=== PATIENT | male | born 1960 | race Caucasian/White ===

== ENCOUNTER 2016-12-31 19:15 | Emergency (ER) | payer OTHER ==
--- NOTE | 2016-12-31 19:55 | RADIOLOGY REPORT ---
HISTORY: Trauma. COMPARISON: None. TECHNIQUE: Three views right foot. FINDINGS: There is no evidence of acute fracture or dislocation. The joint spaces appear preserved. There is normal bone mineralization. The soft tissues appear unremarkable. IMPRESSION: No fracture or dislocation. Final Electronic Signature: This report was electronically signed by Adonis Arechiga MD on 12/31/2016 7: 52 PM. nicolas /
--- NOTE | 2016-12-31 20:12 | ER NURSING DOCUMENTATION ---
Nurse's Notes [facility] Name:Estevan Adame Age:56 yrs Sex:Male :1960 Arrival Date:12/31/2016 Time:19:15 Bed6 Private MD: Diagnosis:Foot Contusion Presentation: 12/31 19:24 Presenting complaint: Patient states: I tripped on some snow and the outside of my foot mk2 really hurts. Pt points to distal lateral portion of R foot for pain. Transition of care: Home. Care prior to arrival: Medication(s) given: Ibuprofen. 19:24 Method Of Arrival: Walk In 2 19:24 Acuity: REZA 4 2 Triage Assessment: 19:25 General: Appears in no apparent distress, Behavior is cooperative, pleasant. Pain: [facility] Complains of pain in lateral side of right foot Pain currently is 6 out of 10 on a pain scale. Quality of pain is described as sharp. Musculoskeletal: Circulation, motion, and sensation intact Capillary refill < 3 seconds Pt states some residual numbness in the R foot after back surgery. Injury Description: tripped. Historical: - Allergies: No known drug Allergies; - Home Meds: 1. None - PMHx: None; - PSHx: L5 surgery; - Tetanus: < 10 years. - Ebola Screening: : Patient negative for fever greater than or equal to 101.5 degrees Fahrenheit, and additional compatible Ebola Virus Disease symptoms. Patient denies exposure to infectious person. Patient denies travel to an Ebola-affected area in the 21 days before illness onset. No symptoms or risks identified at this time. . - Immunization history: Flu Vaccine < 1 year. - Social history: Smoking status: Patient states was never smoker of tobacco. Patient uses alcohol occasionally. Patient/guardian denies using street drugs. Screenin:27 Infectious Disease Risk None. Abuse screen: Denies threats or abuse. Nutritional 2 screening: No deficits noted. Assessment: 19:27 See Triage Assessment done by same RN. [facility] Vital Signs: 19:20 BP 128 / 88; Pulse 94; Resp 16; Temp 98.4; Pulse Ox 95% ; Weight 81.65 kg; Height 6 ft. jt (182.88 cm); Pain 7/10; 19:20 Body Mass Index 24.41 (81.65 kg, 182.88 cm) jt ED Course: 19:16 Patient arrived in ED. em3 19:20 Spencer Patterson MD is Attending Physician. nv 19:24 Nikkie Gonsalez, RN is Primary Nurse. mk2 19:25 Triage completed. mk2 19:26 Arm band placed on Bed in low position Call Light in Reach Gowned HOB Elevated Side mk2 rails up x1. 19:27 Valuables Remains with patient Patient has correct armband on for positive mk2 identification. Bed in low position. Call light in reach. Side rails up X 1. Ice pack to injury. 19:59 Port Xray Completed. pm1 Administered Medications: No medications were administered Outcome: 20:03 Discharge ordered by . nv 20:10 Discharged to home via wheelchair. mk2 20:10 Condition: good 20:10 Discharge instructions given to patient, Instructed on discharge instructions, follow up and referral plans. medication usage. 20:10 Patient left the ED. mk2 01/01 17:06 Discharge F/U Call: Unable to reach: no answer lb Signatures: Spencer Patterson MD MD nv Nikkie Gonsalez, RN RN mk2 Saud Hood pm1 Scottie Hopper em3 Liv Cotton Lynda lb
--- NOTE | 2016-12-31 20:14 | ER PHYSICIAN DOCUMENTATION ---
Physician Documentation [facility] Name:Estevan Adame Age:56 yrs Sex:Male :1960 Arrival Date:12/31/2016 Time:19:15 Bed6 Private MD: Spencer Dalton Disposition: 12/31/16 20:03 Discharged to Home/Self Care. Impression: Foot Contusion. - Condition is Good. - Discharge Instructions: CONTUSION, Foot. - Medical Reconciliation form form. - Follow up: Private Physician; When: 10 - 14 days; Reason: Recheck today's complaints. - Problem is new. - Symptoms are unchanged. HPI: 12/31 19:58 This 56 yrs old Male presents to ER via Walk In with complaints of Foot sc Injury - Right. 19:58 The patient presents with an injury. The complaints affect the right foot. Context: The sc problem was sustained outdoors, resulted from the patient stepping on slipped in snow. Onset: The symptom(s)/episode began/occurred today. Associated signs and symptoms: The patient has no apparent associated signs or symptoms. Historical: - Allergies: No known drug Allergies; - Home Meds: 1. None - PMHx: None; - PSHx: L5 surgery; - Tetanus: < 10 years. - Ebola Screening: : Patient negative for fever greater than or equal to 101.5 degrees Fahrenheit, and additional compatible Ebola Virus Disease symptoms. Patient denies exposure to infectious person. Patient denies travel to an Ebola-affected area in the 21 days before illness onset. No symptoms or risks identified at this time. . - Immunization history: Flu Vaccine < 1 year. - Social history: Smoking status: Patient states was never smoker of tobacco. Patient uses alcohol occasionally. Patient/guardian denies using street drugs. ROS: 19:59 MS/extremity: Positive for injury or acute deformity. sc 19:59 Constitutional: Negative for fever, chills, and weight loss. sc Neck: Negative for injury, pain, and swelling. Back: Negative for injury and pain. Skin: Negative for injury, rash, and discoloration. 19:59 Neuro: Negative for headache, weakness, numbness, tingling, and seizure. Exam: Constitutional: This is a well developed, well nourished patient who is awake, alert, and in no acute distress. Head/Face: Normocephalic, atraumatic. 19:59 Eyes: Pupils equal round and reactive to light, extra-ocular motions intact. Lids and sc lashes normal. Conjunctiva and sclera are non-icteric and not injected. Cornea within normal limits. Periorbital areas with no swelling, redness, or edema. 19:59 Musculoskeletal/extremity: Extremities: grossly normal except: noted in the lateral side of right foot: tenderness, ROM: full active range of motion, full passive range of motion, Circulation is intact in all extremities. Sensation intact. generally decreased sensation generally from back surgery, no change today 19:59 Skin: Exam negative for acute changes. 19:59 Neuro: Exam negative for acute changes. Vital Signs: 19:20 BP 128 / 88; Pulse 94; Resp 16; Temp 98.4; Pulse Ox 95% ; Weight 81.65 kg; Height 6 ft. jt (182.88 cm); Pain 7/10; 19:20 Body Mass Index 24.41 (81.65 kg, 182.88 cm) jt MDM: 19:20 Patient medically screened. ca 20:00 Differential diagnosis: fracture, sprain. Data reviewed: vital signs, nurses notes, ca radiologic studies, and as a result, I will. Counseling: I had a detailed discussion with the patient and/or guardian regarding: the historical points, exam findings, and any diagnostic results supporting the discharge/admit diagnosis, radiology results, the need for outpatient follow up, for a recheck. 12/31 19:57 Order name: FOOT;[address] [place] [id number] EDRI 12/31 19:58 Interpretation: Normal. ca 12/31 19:24 Order name: ORTHO: Ice Pack; Complete Time: 19:27 ca Dispensed Medications: No medications were administered Signatures: Spencer Patterson MD MD sc Kruger, Meg, RN RN mk2
== END 2016-12-31 20:11 | disposition home or self-care (01) ==
LOC: ER 19:15
DX: S90.31XA Contusion of right foot, initial encounter (principal); W00.0XXA Fall on same level due to ice and snow, initial encounter; Y92.89 Other specified places as the place of occurrence of the external cause; Y93.01 Activity, walking, marching and hiking
CPT/HCPCS: 99283